=== PATIENT | female | born 1965 | race Caucasian/White ===

== ENCOUNTER → 2017-08-23 | Outpatient (CLI) | END | disposition home or self-care (01) ==

== ENCOUNTER 2017-11-03 07:32 | Inpatient (IN) | END 2017-11-05 19:25 | disposition home health service (06) | DRG 470 ==

== ENCOUNTER → 2017-11-15 | Outpatient (CLI) | END | disposition home or self-care (01) ==

== ENCOUNTER → 2017-11-22 | Outpatient (CLI) | END | disposition home or self-care (01) ==

== ENCOUNTER → 2017-12-10 | Outpatient (CLI) | END | disposition home or self-care (01) ==

== ENCOUNTER → 2018-01-13 | Outpatient (CLI) | END | disposition home or self-care (01) ==